=== PATIENT | male | born 1935 | race Caucasian/White ===

== ENCOUNTER 2017-01-26 10:03 | Emergency (ER) | payer BC, OTHER ==
[~2017-01-26] VITALS: Ht 180.3 cm; Wt 90.0 kg
[2017-01-26 10:11] VITALS: Ht 180.3 cm; Wt 90.0 kg
[2017-01-26] MEDS ORDERED: SOD CHLORIDE 0.9% 1,000 ML IV STA (10:14)
[2017-01-26 10:38] LABS: ABNORMAL IP MESSAGE 1; BASOPHILS % 0.3 % (0.0-2.0); EOSINOPHILS % 0.5 % (0.0-7.0); HEMATOCRIT 34.7 % (42.0-52.0); HEMOGLOBIN 11.6 g/dl (14.0-18.0); LYMPHOCYTES # 1.4 10^3/ul (0.8-2.9); LYMPHOCYTES % 35.9 % (15.0-51.0); MEAN CORPUSCULAR HEMOGLOBIN 32.2 pg (29.0-33.0); MEAN CORPUSCULAR HGB CONC 33.4 g/dl (32.0-37.0); MEAN CORPUSCULAR VOLUME 96.4 fl (82.0-101.0); MEAN PLATELET VOLUME 9.9 fl (7.4-10.4); MONOCYTE # 0.6 10^3/ul (0.3-0.9); MONOCYTES % 16.1 % (0.0-11.0); NEUTROPHILS % 45.7 % (39.0-77.0); PLATELET COUNT 53 10^3/UL (140-415); POSITIVE DIFF @See below; RED CELL DISTRIBUTION WIDTH 14.7 % (11.5-14.5)
--- NOTE | 2017-01-26 10:46 | RADRPT ---
PROCEDURE: Chest radiograph CLINICAL INDICATION: Syncope. COMPARISON: None relevant listed. TECHNIQUE: Single frontal chest radiograph. FINDINGS: Implantable cardioverter defibrillator on the left chest with single lead terminating in the right v entricle. The left diaphragm is elevated. The lungs are clear. No pleural effusion or focal parenchymal opacity. The cardiomediastinal silhouette is normal. No suspicious bone lesion. Median sternotomy. IMPRESSION: No acute cardiopulmonary abnormality. RPTAT: PP Physician Spenser Date Time Electronically viewed and signed by Physician Spenser on 01/26/2017 10:46 LG/
[2017-01-26 11:04] LABS: INR 0.96; PROTIME 12.8 Sec (12.2-14.2)
[2017-01-26 11:05] LABS: PARTIAL THROMBOPLASTIN TIME 26.2 Sec (25.0-35.0)
[2017-01-26 11:08] LABS: ALANINE AMINOTRANSFERASE 35 IU/L (13-69); ALBUMIN 4.2 g/dl (3.3-4.9); ALBUMIN/GLOBULIN RATIO 1.44; ALKALINE PHOSPHATASE 39 IU/L (42-121); ANION GAP 20 (8-16); ASPARTATE AMINO TRANSFERASE 28 IU/L (15-46); BILIRUBIN,INDIRECT 1.9 mg/dl (0-1.1); BILIRUBIN,TOTAL 1.9 mg/dl (0.2-1.3); BLOOD UREA NITROGEN 15 mg/dl (7-20); CALCIUM 9.4 mg/dl (8.4-10.2); CARBON DIOXIDE 25 mmol/L (21-31); CHLORIDE 100 mmol/L (97-110); GLUCOSE 225 mg/dl (70-220); POTASSIUM 4.2 mmol/L (3.5-5.1); SODIUM 141 mmol/L (135-144); TOTAL PROTEIN 7.1 g/dl (6.1-8.1)
[2017-01-26 11:19] LABS: B-TYPE NATRIURETIC PEPTIDE 254 PG/ML (0-450)
[2017-01-26] MEDS ORDERED: DOXA4TAB2 PO (11:19)
[2017-01-26] MEDS ORDERED: CLOP75TA27 PO (11:21)
[2017-01-26 11:22] LABS: TROPONIN-I < 0.012 ng/ml (0.00-0.12)
[2017-01-26] MEDS ORDERED: FINA5TAB4 PO (11:22)
[2017-01-26] MEDS ORDERED: CARV25TA97 PO (11:22)
[2017-01-26] MEDS ORDERED: GABA300C16 PO (11:24)
[2017-01-26] MEDS ORDERED: GLIP-95 PO (11:24)
[2017-01-26] MEDS ORDERED: HYDR-905 PO (11:25)
[2017-01-26] MEDS ORDERED: SITA100T8 PO (11:27)
[2017-01-26] MEDS ORDERED: BENA5TAB2 PO (11:27)
[2017-01-26] MEDS ORDERED: PANT40TA4 PO (11:30)
[2017-01-26] MEDS ORDERED: METF500T4 PO (11:30)
[2017-01-26] MEDS ORDERED: SIMV40TA2 PO (11:31)
[2017-01-26] MEDS ORDERED: SPIR25TA PO (11:31)
[2017-01-26] MEDS ORDERED: TIZA4TAB PO (11:32)
[2017-01-26] MEDS ORDERED: ALPR0.5T6 PO (11:32)
[2017-01-26] MEDS ORDERED: FOLI0.4T2 PO (11:33)
[2017-01-26] MEDS ORDERED: ASPI-716 PO (11:34)
[2017-01-26] MEDS ORDERED: ASCO500C7 PO (11:35)
[2017-01-26] MEDS ORDERED: OMEG1CAP17 PO (11:35)
[2017-01-26] MEDS ORDERED: CYAN500T46 PO (11:36)
--- NOTE | 2017-01-26 11:46 | RADRPT ---
PROCEDURE: US left lower extremity venous Doppler CLINICAL INDICATION: Left leg swelling. TECHNIQUE: Multiple sonographic images of the left lower extremity deep venous system was obtained utilizing grayscale, color-flow, compressive sonography and Doppler imaging with augmentation. COMPARISON: There are no similar studies submitted for comparison. FINDINGS: There is normal compressibility and flow within the left common femoral, femoral, popliteal, posteri or tibial, and peroneal veins. IMPRESSION: No sonographic evidence for left deep venous thrombosis. RPTAT: HLG Physician Spenser Date Time Electronically viewed and signed by Physician Spenser on 01/26/2017 11:45 LG/
--- NOTE | 2017-01-26 13:40 | ERD ---
ER Documentation Chief Complaint Date/Time DATE: 01/26/17 TIME: 13:33 Chief Complaint syncopal episode at [facility], ekg in field poss.stemi,denies chest pain HPI This is a very pleasant 82-year-old male that presents to the emergency department after he had a near syncope episode just prior to arrival. Contrary to the triage note the patient stated he did not have a complete transient loss of consciousness. He stated he has a history of lzf-lfxxepr-dhxybfbey diabetes mellitus. [facility] had [facility] which he just finished that he stated he consumed a significant amount of sugar. Shortly after the patient felt very lightheaded and became diaphoretic as he stood up. He sat back down and his friend called 911. The patient denied any chest pain or pressure that radiated to the neck arm back or jaw. He states he has a significant cardiac history with a triple bypass in 1982 and 4 stents placed several years prior to arrival. He denies any shortness of breath at rest or exertion. He denied a headache or neck pain. He did state he had a similar episode of a vasovagal syncope one year prior to arrival. He does indicate over the past 2 days he noticed mild swelling of his left lower extremity with very mild tenderness in his left calf. The patient is on anticoagulation as he takes Xarelto and he states he is very compliant with all of his medications. When EMS arrived they stated the patient's Accu-Chek was elevated. He was hypotensive and therefore they administered IV fluids and laid the patient supine. Afterwards he stated his symptoms had completely resolved and he no longer felt lightheaded or dizzy. He also administered 162 mg of aspirin As the EKG in the field indicated a possible STEMI. However again the patient denied any chest pain or pressure that radiated to the neck arm back or jaw ROS All systems reviewed and are negative except as per history of present illness. Medications Home Meds Reported Medications Cyanocobalamin* (Vitamin B12*) 500 Mcg Tab, 1000 MCG PO DAILY, TAB 01/26/17 [place]-3 Fatty Acids/Fish Oil (Fish Oil 1,000 mg Softgel) 1 Each Capsule, 1 EACH PO DAILY, CAP 01/26/17 Ascorbic Acid* (Vitamin C*) 500 Mg Capsule.sa, 500 MG PO DAILY, CAP 01/26/17 Aspirin* (Ecotrin*) 81 Mg Tablet.dr, 81 MG PO BID, TAB 01/26/17 Folic Acid* (Folic Acid*) 0.4 Mg Tablet, 0.4 MG PO DAILY, TAB 01/26/17 Alprazolam* (Alprazolam*) 0.5 Mg Tablet, 0.5 MG PO DAILY Y for ANXIETY, TAB 01/26/17 Tizanidine Hcl* (Tizanidine Hcl*) 4 Mg Tablet, 4 MG PO QHS Y for SPASTICITY, TAB 01/26/17 Spironolactone* (Aldactone*) 25 Mg Tablet, 12.5 MG PO DAILY, #30 TAB 01/26/17 Simvastatin* (Zocor*) 40 Mg Tablet, 40 MG PO QHS, #30 TAB 01/26/17 Pantoprazole* (Pantoprazole*) 40 Mg Tablet.dr, 40 MG PO AC BREAKFAST, TAB 01/26/17 Metformin* (Glucophage*) 500 Mg Tab, 750 MG PO BID WITH MEALS, #90 TAB 01/26/17 Benazepril Hcl* (Benazepril Hcl*) 5 Mg Tablet, 5 MG PO BID, #60 TAB 01/26/17 Sitagliptin* (Januvia*) 100 Mg Tablet, 100 MG PO QAM, #30 TAB 01/26/17 Hydrocodone/Acetaminophen ([place] 7.5-325 Tablet) 1 Each Tablet, 1 EACH PO DAILY Y for SEVERE PAIN LEVEL 7-10, TAB 01/26/17 Gabapentin* (Gabapentin*) 300 Mg Capsule, 300 MG PO QPM, #60 CAP 01/26/17 Glipizide* (Glipizide*) 10 Mg Tablet, 20 MG PO BID, TAB 01/26/17 Finasteride* (Finasteride*) 5 Mg Tablet, 5 MG PO DAILY, TAB 01/26/17 Carvedilol* (Coreg*) 25 Mg Tablet, 25 MG PO BID, #60 TAB 01/26/17 Clopidogrel Bisulfate (Clopidogrel) 75 Mg Tablet, 75 MG PO DAILY, #30 TAB 01/26/17 Doxazosin Mesylate* (Cardura*) 4 Mg Tablet, 4 MG PO QHS, #30 TAB 01/26/17 Allergies Allergies: Coded Allergies: No Known Allergy (Unverified , 01/26/17) PMhx/Soc History of Surgery: Yes (4 stents, cardiac bypass 1982) Anesthesia Reaction: No Hx Neurological Disorder: No Hx Respiratory Disorders: No Hx Cardiac Disorders: Yes (4 stents, cardiac bypass 1982, htn) Hx Psychiatric Problems: No Hx Miscellaneous Medical Probl: No Hx Alcohol Use: No Hx Substance Use: No Hx Tobacco Use: No Smoking Status: Never smoker Physical Exam Vitals Vital Signs Date Time Temp Pulse Resp B/P Pulse Ox O2 Delivery O2 Flow Rate FiO2 01/26/17 10:30 98.3 66 20 124/56 98 Room Air 01/26/17 10:23 Nasal Cannula 2 01/26/17 10:11 97.8 63 18 120/59 98 Physical Exam Constitutional:Well-developed. Well-nourished. HEENT:Normocephalic. Atraumatic.Pupils were equal round reactive to light. Moist mucous membranes.No tonsillar exudates. Neck: No nuchal rigidity. No lymphadenopathy. No posterior cervical spine tenderness or step-offs. Respiratory: Not using accessory muscles of respiration.Lungs were clear to auscultation bilaterally. No rhonchi. No rales. No wheezing. Cardiovascular: Regular rate regular rhythm.No murmurs. No rubs were appreciated.S1, S2 normal. Distal pulses are palpable 2+ bilaterally. GI: Abdomen was soft. Nontender. Non Distended. No pulsatile abdominal masses or bruits. No rebound. No guarding. Bowel sounds were present and normal. Muscle skeletal: Full range of motion of both the upper and lower extremities bilaterally.Normal muscle tone.No assymetrical calf tenderness or swelling. Skin: No petechia, no purpura. No lesions on the palms or the soles of the feet. No maculopapular rash. NEURO: Patient was alert, awake, orientated x3.No facial droop. Gait observed and normal with no ataxia.Speech had regular rate and rhythm. No focal neurological deficits. Result Diagram: 01/26/17 1010 01/26/17 1010 Results 24 hrs Laboratory Tests Test 01/26/17 10:10 White Blood Count 4.010^3/ul Red Blood Count 3.6010^6/ul Hemoglobin 11.6g/dl Hematocrit 34.7% Mean Corpuscular Volume 96.4fl Mean Corpuscular Hemoglobin 32.2pg Mean Corpuscular Hemoglobin Concent 33.4g/dl Red Cell Distribution Width 14.7% Platelet Count 5310^3/UL Mean Platelet Volume 9.9fl Neutrophils % 45.7% Lymphocytes % 35.9% Monocytes % 16.1% Eosinophils % 0.5% Basophils % 0.3% Nucleated Red Blood Cells % 0.0/100WBC Neutrophils # (Manual) 1.810^3/ul Lymphocytes # 1.410^3/ul Monocytes # 0.610^3/ul Eosinophils # 0.010^3/ul Basophils # 0.010^3/ul Nucleated Red Blood Cells # 0.010^3/ul Prothrombin Time 12.8Sec Prothrombin Time Ratio 1.0 INR International Normalized Ratio 0.96 Activated Partial Thromboplast Time 26.2Sec Sodium Level 141mmol/L Potassium Level 4.2mmol/L Chloride Level 100mmol/L Carbon Dioxide Level 25mmol/L Anion Gap 20 Blood Urea Nitrogen 15mg/dl Creatinine 0.90mg/dl Glucose Level 225mg/dl Calcium Level 9.4mg/dl Total Bilirubin 1.9mg/dl Direct Bilirubin 0.00mg/dl Indirect Bilirubin 1.9mg/dl Aspartate Amino Transf (AST/SGOT) 28IU/L Alanine Aminotransferase (ALT/SGPT) 35IU/L Alkaline Phosphatase 39IU/L Troponin I < 0.012ng/ml B-Type Natriuretic Peptide 254PG/ML Total Protein 7.1g/dl Albumin 4.2g/dl Globulin 2.90g/dl Albumin/Globulin Ratio 1.44 Current Medications Medications (Trade) Dose Ordered Sig/Tahir Route PRN Reason Start Time Stop Time Status Last Admin Dose Admin Sodium Chloride (NS) 1,000 ml @ 1,000 mls/hr Q1H STAT IV 01/26/17 10:14 01/26/17 11:13 DC 01/26/17 10:41 Procedures/MDM The patient presented to the emergency department with a near syncope episode. The differential diagnosis of syncope is vast but my workup considered common benign disorders to life-threatening processes. Therefore my differential diagnosis included but was not limited to reflex-mediated syncope such as vasovagal or carotid sinus syncope from coughing, sneezing, micturition, or GI stimulation (eg, defecation). Other etiologies in my workup included orthostatic hypotension which could cause syncope from an abrupt drop in venous return to heart from volume depletion. An EKG and cardiac enzymes were obtained to rule out cardiac arrhythmias or ischemia. Cardiopulmonary disease such as valvular disease, hypertrophic cardiomyopathy, pericardial tamponade, or pulmonary embolism were considered as a factor causing the patients syncope episode. The patient had no difference in blood pressure in both arms that could suggest aortic dissection or subclavian steal syndrome. Rectal exam was negative for fecal occult blood that could suggest GI bleeding. Ancillary laboratory work was obtained to evaluate for metabolic or electrolyte abnormalities. The patient had no witnessed brief tonic movements that could suggest postictal confusion. The patient was placed on a general administrator, continuous pulse oximetry and IV access established by nursing staff. 12 Lead EKG tracing ordered and reviewed by myself showed: Normal sinus rhythm of 66 bpm and no arrhythmia. TX interval prolonged in all leads at 266 ms consistent with a first-degree AV block QRS duration normal. No ST segment elevation. Q waves present in inferior lead III and aVF No ST segment depression. No changes consistent with acute ischemia. I obtained a 1 view chest radiograph which showed no infiltrates pneumothorax or pleural effusion. The patient did not have any physical exam findings to suggest peripheral edema and Homans sign was negative the bilateral lower extremities. However I did obtain an ultrasound venous duplex of the left lower extremity given that the patient was explaining he had mild calf tenderness. This was negative for DVT I also obtained a CT scan of the patient's head which showed no acute intracerebral hemorrhage mass-effect or midline shift. The patient received a liter bolus of normal saline in the emergency department. His was present at bedside and I reviewed all of the labs and diagnostic imaging. He stated he felt comfortable being discharged home as he has had a similar symptoms in the past diagnosed with vasovagal syncope. He has good outpatient follow-up and stated he will provide all the reports to his primary care physician. The patient was discharged home in fair condition. They were instructed to return to the emergency department at any time if there was any worsening of their condition. The patient stated they would follow up with their PCP in the next 24-48 hours to initiate a suitable medication regimen under the care of their PCP as well as to allow their PCP to monitor any drug reactions. The patient was discharged home with prescriptions after they gave informed consent to the new medication. They were also fully informed by myself on the adverse effects and adverse drug interactions in order to provide adequate safeguards to prevent possible adverse reactions to medications. Departure Diagnosis: Primary Impression: Near syncope Additional Impression: Hyperglycemia without ketosis Condition: ABRAN Wilson Jan 26, 2017 13:40
--- NOTE | 2017-01-26 13:55 | RADRPT ---
PROCEDURE: CT Brain without contrast. CLINICAL INDICATION: Trauma due to a fall. Syncope. TECHNIQUE: A CT of the brain without contrast was performed utilizing axial sections from the skul l base through the vertex. The patient was scanned without intravenous contrast enhancement. Sagitta l and coronal reformatted images were obtained using the data from the axial images. Total exam DLP is 720.23 mGy-cm. CTDIvol is 44.52 mGy. One or more of the following dose reduction techniques were used: Automated exposure control, adjustment of the mA and/or kV according to patient size, use of iterative reconstruction technique. COMPARISON: None available. FINDINGS: There is normal brandon-white matter differentiation. There is enlargement of the ventricles and subarachnoid spaces consistent with atrophy. There is decreased attenuation of the periventricular white matter consistent with microangiopathic ischemic change. There is no intracranial hemorrhage or space-occupying lesion. There are vascular calcifications consistent with atherosclerosis. There is no skull fracture or lytic lesion. IMPRESSION: 1. Atrophy. 2. Microangiopathic ischemic change. 3. Atherosclerosis. 4. No intracranial hemorrhage. 5. Otherwise unremarkable noncontrast CT scan of the brain. RPTAT: QQ .Luis Miguel Sinha MD, MD Date Time Electronically viewed and signed by .Luis Miguel Sinha MD, on 01/26/2017 13:54 .R/
[2017-01-26 14:29] VITALS: BP 98/49; PULSE 65; RESP 17; TEMP 97.9
== END 2017-01-26 14:30 | disposition home or self-care (01) ==
LOC: E/R 10:03
DX: R55 Syncope and collapse (principal); I10 Essential (primary) hypertension; E11.65 Type 2 diabetes mellitus with hyperglycemia; Z79.82 Long term (current) use of aspirin; Z79.84 Long term (current) use of oral hypoglycemic drugs; Z98.61 Coronary angioplasty status
CPT/HCPCS: 70450; 71010; 80053; 83880; 84484; 85025; 85610; 85730; 93005; 93971; 99285; J7030